=== PATIENT | female | born 1985 | race Two or more races ===

== ENCOUNTER 2016-03-31 10:16 | Emergency (ER) | payer OTHER ==
[~2016-03-31] VITALS: Ht 152.4 cm; Wt 67.2 kg
[2016-03-31 11:41] LABS: Urine Bilirubin Negative (Negative); Urine Blood Negative /uL (Negative); Urine Color Yellow (Yellow); Urine Glucose Normal (Normal); Urine Ketone Negative (Negative); Urine Mucus FEW (None Seen); Urine Nitrite Negative (Negative); Urine RBC 2 /hpf (0 - 4); Urine Squamous Epithelial Cell FEW /hpf (<5); Urine Urobilinogen Normal (Negative)
[2016-03-31 16:18] VITALS: BP 156/77
== END 2016-03-31 17:17 | disposition home or self-care (01) ==
LOC: ER 10:23
DX: N39.0 Urinary tract infection, site not specified (principal); E11.9 Type 2 diabetes mellitus without complications; Z57.5 Occupational exposure to toxic agents in other industries
CPT/HCPCS: 36600; 81001; 82805

== ENCOUNTER 2024-12-28 05:19 | Inpatient (IN) | payer BC, OTHER ==
[~2024-12-28] VITALS: Ht 152.4 cm; Wt 69.0 kg
[2024-12-28 04:30] VITALS: BP 138/86; PULSE 83; RESP 18; TEMP 98.2; O2SAT 99
--- NOTE | 2024-12-28 06:41 | ED.PDOC ---
History of Present Illness HPI Comments 39 y/o F presents with friend for c/c of nonradiating, RUQ abdominal pain, with associated lightheadedness. Patient endorses on sudden, unprovoked, and atraumatic onset of pain, which awoken her from her sleep, at 0230, this morning. She comments on sitting or laying down worsening her pain. Denies any nausea, vomiting, or further acute symptoms. Significant family history of gallstones and kidney stones. LMP was 2x weeks ago. Chief Complaint: Abdominal Pain Time Seen by MD: 06:20 Primary Care Provider: TITO Reviewed Notes: Nurses Notes, Medications, Allergies Allergies: Coded Allergies: NO KNOWN ALLERGIES (Unverified , 03/31/16) Information Source: Patient Mode of Arrival: Ambulatory Severity: Moderate Timing: Hours Duration: Since onset Prehospital treatment: None Past Medical History PAST MEDICAL HISTORY: DM Surgical History: Denies all surgeries HEALTH CARE COACH History: No Pertinent HEALTH CARE COACH History LMP 12/14/2024 Family History Family History: No family hx of DM, No family hx of Heart sejal, No family hx of HTN Family History (Other): maternal Hx of kidney and gallstones Social History Smoker: Non-Smoker Alcohol: Occasionally Drugs: Denies Drug Use All Other Systems: Reviewed and Negative (Comprehensive review of systems are negative unless stated in HPI) Physical Exam General Appearance: Moderate Distress HEENT: Normal ENT Inspection, Pharynx Normal, TMs Normal Neck: Full Range of Motion, Non-Tender, Normal, Normal Inspection Respiratory: Chest Non-Tender, Lungs Clear, No Accessory Muscle Use, No Respiratory Distress, Normal Breath Sounds Cardiovascular: No Edema, No JVD, No Murmur, No Gallop, Normal Peripheral Pulses, Regular Rate/Rhythm Breast Exam: Deferred Gastrointestinal: Diffuse, No Organomegaly, No Pulsatile Mass, Normal Bowel Sounds, Soft Genitalia: Deferred Pelvic: Deferred Rectal: Deferred Extremities: No calf tenderness, Normal capillary refill, Normal inspection, Normal range of motion, Non-tender, No pedal edema Musculoskeletal : Apperance: Normal Neurologic: Alert, lawyer II-XII nml as Tested, No Motor Deficits, Normal Affect, Normal Mood, No Sensory Deficits Cerebellar Function: Normal Reflexes: Normal Skin: Dry, Normal Color, Warm Peripheral Pulses: 3+ Radial (R), 3+ Radial (L) Lymphatic: No Adenopathy Was a procedure done? Was a procedure done?: No Differential Dx Considerations may include: cholelithiasis, cholecystitis, gastritis, gastroenteritis, GERD, nephrolithiasis, pyelonephritis, cystitis, musculoskeletal pain, among others X-Ray, Labs, Meds, VS Vital Signs Date Time Temp Pulse Resp B/P (MAP) Pulse Ox O2 Delivery O2 Flow Rate FiO2 12/28/24 05:20 97.1 84 18 145/88 100 97.1 Lab Test 12/28/24 06:58 Range/Units White Blood Count 13.2 H 4.4-10.8 10^3/uL Red Blood Count 4.36 4.0-5.20 10^6/uL Hemoglobin 11.9 L 12.2-16.2 g/dL Hematocrit 36.1 36.0-46.0 % Mean Corpuscular Volume 82.8 80.0-100.0 fL Mean Corpuscular Hemoglobin 27.2 L 28.0-32.0 pg Mean Corpuscular Hemoglobin Concent 32.8 32.0-36.0 g/dL Red Cell Distribution Width 15.7 H 11.8-14.3 % Platelet Count 352 140-450 10^3/uL Mean Platelet Volume 7.2 6.9-10.8 fL Neutrophils (%) (Auto) 75.7 37.0-80.0 % Lymphocytes (%) (Auto) 17.7 10.0-50.0 % Monocytes (%) (Auto) 5.8 0.0-12.0 % Eosinophils (%) (Auto) 0.5 0.0-7.0 % Basophils (%) (Auto) 0.3 0.0-2.0 % Neutrophils # (Auto) 10.0 H 1.6-8.6 10 ^3/uL Lymphocytes # (Auto) 2.3 0.4-5.4 10 ^3/uL Monocytes # (Auto) 0.8 0-1.3 10 ^3/uL Eosinophils # (Auto) 0.1 0-0.8 10 ^3/uL Basophils # (Auto) 0 0-0.2 10 ^3/uL Nucleated Red Blood Cells 0.0 % Sodium Level 141 136-145 mmol/L Potassium Level 3.6 3.5-5.1 mmol/L Chloride Level 107 98-107 mmol/L Carbon Dioxide Level 20 20-31 mmol/L Anion Gap 14 5-15 Blood Urea Nitrogen 10 9-23 mg/dL Creatinine 0.85 0.550-1.02 mg/dL Glomerular Filtration Rate Calc 89 >90 mL/min BUN/Creatinine Ratio 11.8 10.0-20.0 Serum Glucose 123 H 74-106 mg/dL Calcium Level 9.5 8.7-10.4 mg/dL Total Bilirubin Pending Aspartate Amino Transferase (AST) Pending Alanine Aminotransferase (ALT) Pending Alkaline Phosphatase Pending Current Medications Medications (Trade) Dose Ordered Sig/Beverly Route Start Time Stop Time Status Last Admin Sodium Chloride 1,000 ml @ 1,000 mls/hr Q1H ONCE IV 12/28/24 06:45 12/28/24 07:44 12/28/24 07:14 Ketorolac Tromethamine (Toradol Injection) 30 mg ONCE ONCE IV 12/28/24 06:45 12/28/24 06:46 DC 12/28/24 07:14 Ondansetron HCl (Zofran) 4 mg ONCE ONCE IV 12/28/24 06:45 12/28/24 06:46 DC 12/28/24 07:14 [place] [id number] Ph: [phone] DIAGNOSTIC IMAGING Diagnostic Imaging Report : [id number] Signed PATIENT: SUSAN MOELLER ACCT: [id number] UNIT: [id number] : 1985 LOC: ER ROOM / BED: / AGE / SEX: 39 / F ADM STATUS: REG ER SERVICE 0636 ORDERING PHYSICIAN: LAILA FERNANDEZ MD PROCEDURE(s): ABPL - CT AB PEL WO CON-NO ORAL OR IV REASON: stone ORDER NUMBER(s): [id number], ACCESSION NUMBER(s): [id number] Indication: stone Technique: CT axial images of the abdomen and pelvis are obtained without contrast. Coronal and sagittal reformats were obtained. Radiation Dose Information: CTDI volume is 6.08 mGy. Dose-length product is 283.77 mGy*cm Comparison: None FINDINGS: There is limited interpretation of the abdomen and pelvis without administration of intravenous contrast. The lung bases demonstrate no pleural effusion. Adrenal glands, spleen, pancreas unremarkable. Cholelithiasis. Distended gallbladder. There appears to be a gallstone impacted at the gallbladder neck. Liver unremarkable in shape. The bilateral kidneys demonstrate no hydronephrosis/ nephrolithiasis. Stomach is partially distended. Small bowel loops are normal in caliber. Moderate volume stool throughout the colon. Normal appendix. Bladder partially distended. No free pelvic fluid. No inguinal lymphadenopathy. No aggressive osseous process. IMPRESSION: Limited evaluation without contrast. Cholelithiasis with gallstone at the gallbladder neck. Distended gallbladder. Recommend HIDA scan to exclude cholecystitis. No hydronephrosis / nephrolithiasis. Moderate volume stool throughout the colon. Other findings as described. ATED BY: LILIANA ANDRADE MD DICTATED DATE/TIME: 12/28/24726 SIGNED BY: LILIANA ANDRADE MD SIGNED DATE/TIME: 12/28/24726 CC: Patient alert. Complaining of abdominal pain. Possibly stone. Vitals stable. Answering questions. Establish intravenous access. Was given fluids. Was given pain medication. Was given Zofran. Explained to the patient. Continue to monitor. Time of 1ST Reevaluation: 06:50 Reevaluation 1ST: Unchanged Patient Education/Counseling: Diagnosis, Treatment Family Education/Counseling: No Family Present (Friend present ) SEPSIS Sepsis Screen Date sepsis recognized/suspect: Dec 28, 2024 Time Sepsis recognized/suspect: 523 Recent Procedure: No On Antibiotic Therapy: No Respiratory Rate >20: No Heart Rate >90: No Temp<36 C (96.8 F) or >38.3 C: No SBP <90 or MAP <65 mmHG: No New Acute Mental Status Change: No Is the patient on CPAP, BIPAP,: No Physician Orders Urinalysis (12/28/24 06:36) Ct Ab Pel Wo Con-No Oral Or Iv (12/28/24 06:36) Sodium Chloride 0.9% (12/28/24 06:45) Bilirubin, Total (12/28/24 06:59) Aspartate Amino Transferase (12/28/24 06:59) Alanine Aminotransferase (12/28/24 06:59) Alkaline Phosphatase (12/28/24 06:59) Vital Signs Date Time Temp Pulse Resp B/P (MAP) Pulse Ox O2 Delivery O2 Flow Rate FiO2 12/28/24 05:20 97.1 84 18 145/88 100 97.1 Laboratory Tests Test 12/28/24 06:58 White Blood Count 13.2 10^3/uL (4.4-10.8) H Medications Medications Dose Ordered Sig/Beverly Route Start Time Stop Time Status Last Admin Dose Admin Ketorolac Tromethamine 30 mg ONCE ONCE IV 12/28/24 06:45 12/28/24 06:46 DC 12/28/24 07:14 Ondansetron HCl 4 mg ONCE ONCE IV 12/28/24 06:45 12/28/24 06:46 DC 12/28/24 07:14 Sodium Chloride 1,000 ml @ 1,000 mls/hr Q1H ONCE IV 12/28/24 06:45 12/28/24 07:44 12/28/24 07:14 Departure 1 Departure Time of Disposition: 07:03 Impression: Primary Impression: Acute abdominal pain Disposition: ADMITTED INPATIENT Admit to: Med Surg Condition: Guarded Critical Care Note Critical Care Time?: Yes (90 min-critical care time only) Critical care comment: Severe pain Stability Stability form required: No Heart Score Heart Score: Heart Score Response (Comments) Value History N/A 0 EKG N/A 0 Age N/A 0 Risk Factors N/A 0 Troponin N/A 0 Total 0 I personally scribed for LAILA FERNANDEZ MD ([email or web address]) on 12/28/24 at 06:41. Electronically submitted by Bob Tesfaye ([email or web address]). I personally scribed for LAILA FERNANDEZ MD ([email or web address]) on 12/28/24 at 07:43. Electronically submitted by Bob Tesfaye ([email or web address]). LAILA FERNANDEZ MD Dec 28, 2024 06:41
[2024-12-28] MEDS: ONDANSETRON HCL 4 MG/2 ML VIAL IV ONE (07:14)
[2024-12-28] MEDS: KETOROLAC TROMETH 30 MG/ML 1ML VIAL IV ONE (07:14)
[2024-12-28] MEDS: SODIUM CHLORIDE 0.9% 1,000 ML IV ONE (07:14)
--- NOTE | 2024-12-28 07:25 | DVH ---
Indication: stone Technique: CT axial images of the abdomen and pelvis are obtained without contrast. Coronal and sagit cynthia reformats were obtained. Radiation Dose Information: CTDI volume is 6.08 mGy. Dose-length product is 283.77 mGy*cm Comparison: None FINDINGS: There is limited interpretation of the abdomen and pelvis without administration of intravenous contr ast. The lung bases demonstrate no pleural effusion. Adrenal glands, spleen, pancreas unremarkable. Cholelithiasis. Distended gallbladder. There appears to be a gallstone impacted at the gallbladder n [place]. Liver unremarkable in shape. The bilateral kidneys demonstrate no hydronephrosis/ nephrolithiasis. Stomach is partially distended. Small bowel loops are normal in caliber. Moderate volume stool throughout the colon. Normal appendix. Bladder partially distended. No free pelvic fluid. No inguinal lymphadenopathy. No aggressive osseous process. IMPRESSION: Limited evaluation without contrast. Cholelithiasis with gallstone at the gallbladder neck. Distended gallbladder. Recommend HIDA scan t o exclude cholecystitis. No hydronephrosis / nephrolithiasis. Moderate volume stool throughout the colon. Other findings as described.
[2024-12-28 07:32] LABS: Chloride 107 mmol/L (98-107); Potassium 3.6 mmol/L (3.5-5.1); Sodium 141 mmol/L (136-145)
[2024-12-28 07:33] LABS: Anion Gap 14 (5-15); Calcium 9.5 mg/dL (8.7-10.4); Carbon Dioxide 20 mmol/L (20-31)
[2024-12-28 07:37] LABS: Hematocrit 36.1 % (36.0-46.0); Hemoglobin 11.9 g/dL (12.2-16.2); Mean Corpuscular Hemoglobin 27.2 pg (28.0-32.0); Mean Corpuscular Volume 82.8 fL (80.0-100.0); Nucleated Red Blood Cells % 0.0 %
[2024-12-28 07:38] LABS: BUN/Creatinine Ratio 11.8 (10.0-20.0); Blood Urea Nitrogen 10 mg/dL (9-23)
[2024-12-28 07:39] LABS: Glucose 123 mg/dL (74-106)
[2024-12-28 07:41] LABS: Alkaline Phosphatase 83.0 U/L (46-116); Bilirubin, Total 0.3 mg/dL (0.2-1.0)
[2024-12-28 07:51] LABS: Alanine Aminotransferase 46.0 U/L (7-40)
[2024-12-28 11:50] LABS: Urine Protein, UAD Negative (Negative)
[2024-12-28] MEDS ORDERED: ACETAMINOPHEN 325 MG TAB PO PRN (12:00)
--- NOTE | 2024-12-28 12:42 | DVHHP2 ---
History of Present Illness Reason for Visit: Abdominal pain History of Present Illness Krista Farley is a 39-year-old female with past medical history of gestational diabetes 22 years ago, who came to the hospital for abdominal pain. Patient states she last ate 2 corn dogs yesterday 12/27/2024 at 2000. She was awoken at 0230 this morning due to RUQ pain. She tried to relieve the pain at home and relax and go back to sleep with no improvements. The pain continued to worsen prompting her to come to the hospital. Past Surgical History: None Smoke: No ALCOHOL: occassional Drugs: None Lives: with Family Domestic Violence: Neg Review of Systems Constitutional: No: Fever, Chills, Sweats, Weakness, Malaise, Other Eyes: No: Pain, Vision change, Conjunctivae inflammation, Eyelid inflammation, Other, Redness ENT: No: Ear pain, Ear discharge, Nose pain, Nose discharge, Nose congestion, Mouth pain, Mouth swelling, Throat pain, Throat swelling, Other Respiratory: No: Cough, Dry, Shortness of breath, SOB with excertion, Wheezing, Hemoptysis, Pleuritic Pain, Sputum, Wheezing, Other Cardiovascular: No: Chest Pain, Palpitations, Orthopnea, Paroxysmal Noc. Dyspnea, Edema, Lt Headedness, Other Gastrointestinal: Nausea, Abdominal Pain; No: Vomiting, Diarrhea, Constipation, Melena, Hematochezia, Other Genitourinary: No Dysuria, No Frequency, No Incontinence, No Hematuria, No Retention, No Other Musculoskeletal: No: other, neck pain, shoulder pain, arm pain, back pain, hand pain, leg pain, foot pain Skin: No: Rash, Lesions, Jaundice, Bruising, Other Neurological: No: Weakness, Numbness, Incoordination, Change in speech, Confusion, Seizures, Other Allergies: Coded Allergies: NO KNOWN ALLERGIES (Unverified , 03/31/16) Exam Vital Signs Vital Signs Date Time Temp Pulse Resp B/P (MAP) Pulse Ox O2 Delivery O2 Flow Rate FiO2 12/28/24 11:50 98.0 94 15 108/80 (89) 100 98.0 12/28/24 09:05 Room Air General Appearance: Alert, Oriented X3, Cooperative HEENT: Atraumatic, PERRLA, Other (Mucous membr dry) Respiratory: Clear to auscultation, Normal air movement Cardiovascular: Regular rate, Normal S1, Normal S2, No murmurs Abdominal: Normal bowel sounds, Soft, No hepatospenomegaly, Other (RUQ tenderness) Extremities: No clubbing, No cyanosis, No edema, Normal pulses Skin: No rashes, No breakdown, No significant lesion Neuro: Normal gait, Normal speech, Strength at 5/5 X4 ext Psych/Mental Status: Mental status NL, Mood NL Labs/Xrays Labs Test 12/28/24 11:27 12/28/24 06:58 Range/Units Urine Color Straw Yellow Urine Clarity Turbid H Clear Urine pH 5.5 5.0-9.0 Urine Specific [place] 1.009 1.001-1.035 Urine Protein Negative Negative Urine Ketones Negative Negative Urine Blood Negative Negative /uL Urine Nitrite Negative Negative Urine Bilirubin Negative Negative Urine Urobilinogen Normal Negative mg/dL Urine Leukocyte Esterase 3+ Negative /uL Urine RBC 5 0 - 4 /hpf Urine Microscopic WBC 3 0-5 /HPF Urine Squamous Epithelial Cells Few <5 /hpf Urine Bacteria None seen None Seen /hpf Urine Mucus Few None Seen Urine Glucose Normal Normal mg/dL White Blood Count 13.2 H 4.4-10.8 10^3/uL Red Blood Count 4.36 4.0-5.20 10^6/uL Hemoglobin 11.9 L 12.2-16.2 g/dL Hematocrit 36.1 36.0-46.0 % Mean Corpuscular Volume 82.8 80.0-100.0 fL Mean Corpuscular Hemoglobin 27.2 L 28.0-32.0 pg Mean Corpuscular Hemoglobin Concent 32.8 32.0-36.0 g/dL Red Cell Distribution Width 15.7 H 11.8-14.3 % Platelet Count 352 140-450 10^3/uL Mean Platelet Volume 7.2 6.9-10.8 fL Neutrophils (%) (Auto) 75.7 37.0-80.0 % Lymphocytes (%) (Auto) 17.7 10.0-50.0 % Monocytes (%) (Auto) 5.8 0.0-12.0 % Eosinophils (%) (Auto) 0.5 0.0-7.0 % Basophils (%) (Auto) 0.3 0.0-2.0 % Neutrophils # (Auto) 10.0 H 1.6-8.6 10 ^3/uL Lymphocytes # (Auto) 2.3 0.4-5.4 10 ^3/uL Monocytes # (Auto) 0.8 0-1.3 10 ^3/uL Eosinophils # (Auto) 0.1 0-0.8 10 ^3/uL Basophils # (Auto) 0 0-0.2 10 ^3/uL Nucleated Red Blood Cells 0.0 % Sodium Level 141 136-145 mmol/L Potassium Level 3.6 3.5-5.1 mmol/L Chloride Level 107 98-107 mmol/L Carbon Dioxide Level 20 20-31 mmol/L Anion Gap 14 5-15 Blood Urea Nitrogen 10 9-23 mg/dL Creatinine 0.85 0.550-1.02 mg/dL Glomerular Filtration Rate Calc 89 >90 mL/min BUN/Creatinine Ratio 11.8 10.0-20.0 Serum Glucose 123 H 74-106 mg/dL Calcium Level 9.5 8.7-10.4 mg/dL Total Bilirubin 0.3 0.2-1.0 mg/dL Aspartate Amino Transferase (AST) 44 H 13-40 U/L Alanine Aminotransferase (ALT) 46 H 7-40 U/L Alkaline Phosphatase 83 46-116 U/L Technique: CT axial images of the abdomen and pelvis are obtained without contrast. FINDINGS: There is limited interpretation of the abdomen and pelvis without administration of intravenous contrast. The lung bases demonstrate no pleural effusion. Adrenal glands, spleen, pancreas unremarkable. Cholelithiasis. Distended gallbladder. There appears to be a gallstone impacted at the gallbladder neck. Liver unremarkable in shape. The bilateral kidneys demonstrate no hydronephrosis/ nephrolithiasis. Stomach is partially distended. Small bowel loops are normal in caliber. Moderate volume stool throughout the colon. Normal appendix. Bladder partially distended. No free pelvic fluid. No inguinal lymphadenopathy. No aggressive osseous process. IMPRESSION: Limited evaluation without contrast. Cholelithiasis with gallstone at the gallbladder neck. Distended gallbladder. Recommend HIDA scan to exclude cholecystitis. No hydronephrosis / nephrolithiasis. Moderate volume stool throughout the colon. Other findings as described. SEPSIS Sepsis Screen Date sepsis recognized/suspect: Dec 28, 2024 Time Sepsis recognized/suspect: 523 Recent Procedure: No On Antibiotic Therapy: No Respiratory Rate >20: No Heart Rate >90: No Temp<36 C (96.8 F) or >38.3 C: No SBP <90 or MAP <65 mmHG: No New Acute Mental Status Change: No Is the patient on CPAP, BIPAP,: No Physician Orders Ct Ab Pel Wo Con-No Oral Or Iv (12/28/24 06:36) Nm Hida Scan (12/28/24 09:31) Nm Hida Scan (12/28/24 09:47) Admit (12/28/24 11:58) Code Status (12/28/24 11:58) 0.9% Ns 1000 Ml (12/28/24 12:00) Hydrocodone-Acet 5/325mg Tab ([place] 5/32 (12/28/24 12:00) Ondansetron Hcl (Zofran) (12/28/24 12:00) Docusate Sodium Capsule (Colace Capsule) (12/28/24 12:00) Complete Blood Count (12/29/24 04:00) Comprehensive Metabolic Panel (12/29/24 04:00) Npo (Nothing By Mouth) Diet (12/28/24 Lunch) Condition: Serious (12/28/24 11:58) Acetaminophen Tablet (Tylenol Tablet) (12/28/24 12:00) PTPTT (12/28/24 11:58) Gallbladder (12/28/24 11:58) Vital Signs Date Time Temp Pulse Resp B/P (MAP) Pulse Ox O2 Delivery O2 Flow Rate FiO2 12/28/24 11:50 98.0 94 15 108/80 (89) 100 98.0 12/28/24 09:05 97.8 70 16 121/83 (96) 98 97.8 12/28/24 09:05 70 16 98 Room Air 12/28/24 05:20 97.1 84 18 145/88 100 97.1 Laboratory Tests Test 12/28/24 06:58 White Blood Count 13.2 10^3/uL (4.4-10.8) H Medications Medications Dose Ordered Sig/Beverly Route Start Time Stop Time Status Last Admin Dose Admin Ceftriaxone Sodium 50 ml @ 100 mls/hr ONCE ONCE IV 12/28/24 10:00 12/28/24 10:29 DC 12/28/24 10:24 100 MLS/HR Ketorolac Tromethamine 30 mg ONCE ONCE IV 12/28/24 06:45 12/28/24 06:46 DC 12/28/24 07:14 30 MG Metronidazole 100 ml @ 100 mls/hr ONCE ONCE IV 12/28/24 10:00 12/28/24 10:59 DC 12/28/24 10:24 100 MLS/HR Ondansetron HCl 4 mg ONCE ONCE IV 12/28/24 06:45 12/28/24 06:46 DC 12/28/24 07:14 4 MG Sodium Chloride 1,000 ml @ 1,000 mls/hr Q1H ONCE IV 12/28/24 06:45 12/28/24 07:44 DC 12/28/24 07:14 1,000 MLS/HR Assessment/Plan Assessment/Plan Assessment: Cholelithiasis, Possible acute cholecystitis, Leukocytosis, Plan: Admit to Med-Surg, Surgical consult, HIDA scan, Gallbladder ultrasound, NPO, IV hydration, IV antibiotics, Plan discussed with: Patient My Orders Orders - JACOBO NG Procedure Category Date Status Time Nm Hida Scan NM 12/28/24 Logged 09:31 Admit ADMIT 12/28/24 Transmitted 11:58 Code Status CODE 12/28/24 Transmitted 11:58 0.9% Ns 1000 Ml PHA 12/28/24 Transmitted 12:00 Hydrocodone-Acet PHA 12/28/24 Transmitted 5/325mg Tab ([place] 12:00 Ondansetron Hcl PHA 12/28/24 Transmitted (Zofran) 12:00 Docusate Sodium PHA 12/28/24 Transmitted Capsule (Colace 12:00 Complete Blood Count LAB 12/29/24 Verified 04:00 Comprehensive LAB 12/29/24 Verified Metabolic Panel 04:00 Npo (Nothing By DIET 12/28/24 Transmitted Mouth) Diet Lunch Condition: Serious JESUS 12/28/24 Transmitted 11:58 Acetaminophen Tablet PHA 12/28/24 Transmitted (Tylenol Tablet) 12:00 PTPTT LAB 12/28/24 Transmitted 11:58 Gallbladder US 12/28/24 Transmitted 11:58 Date of Service: Dec 28, 2024 Billing Provider: JACOBO NG Common Visit Codes: 33315-MLNAMEQ INP/OBS CARE (MOD) JACOBO NG Dec 28, 2024 12:42
--- NOTE | 2024-12-28 13:04 | DVH ---
INDICATION: Cholelithiasis TECHNIQUE: Multiple real-time sonographic images of the abdomen were obtained. COMPARISON: None FINDINGS: The liver is homogenous in echogenicity. The liver measures 14.7 cm. No intrahepatic bilia ry ductal dilatation is noted. The gallbladder wall measures 0.24 cm and is unremarkable. Cholelithiasis. The common duct measure s 0.55 cm and is unremarkable. No pericholecystic fluid is noted. Negative sonographic coleman's sign The right kidney measures 10.1 cm. No hydronephrosis. The pancreas is visualized and appears normal. The visualized portions of the IVC and aorta are grossly unremarkable. IMPRESSION: 1. Cholelithiasis with negative sonographic coleman's sign 2. Liver measures 14.7 cm in length and appears homogeneous 3. Right kidney measures 10.1 cm in length there is no hydronephrosis.
[2024-12-28] MEDS: SODIUM CHLORIDE 0.9% 1,000 ML IV SCH (13:29)
[2024-12-28 13:35] LABS: INR 1.02 (0.9-1.15); Partial Thromboplastin Time 25.1 SEC (24.5-34.5); Prothrombin Time 10.8 sec (9.3-11.8)
[2024-12-28] MEDS: HYDROcodone-ACET 5/325MG TAB PO PRN (16:24)
[2024-12-28 16:30] VITALS: BP 138/86; PULSE 83; RESP 18; TEMP 98.2; O2SAT 99
[2024-12-28 19:00] VITALS: PULSE 84; RESP 18; O2SAT 100
[2024-12-28] MEDS: HYDROMORPHONE HCL 1 MG/ML INJ IV ONE (19:28)
[2024-12-28 20:22] VITALS: BP 125/78; PULSE 84; RESP 18; TEMP 98.4; O2SAT 100
[2024-12-28 20:30] VITALS: PULSE 89; RESP 18; O2SAT 100
[2024-12-28] MEDS: ONDANSETRON HCL 4 MG/2 ML VIAL IV PRN (20:37)
[2024-12-29] VITALS (10 sets, daily range): BP systolic 107–138; BP diastolic 69–92; PULSE 77–106; RESP 10–20; TEMP 98–98.9; O2SAT 96–99
[2024-12-29] MEDS: HYDROmorphone HCL 2 MG/ML VL/or syr IV PRN (00:13)
[2024-12-29] MEDS: KETOROLAC TROMETH 30 MG/ML 1ML VIAL IV ONE (06:14)
[2024-12-29 07:34] LABS: Hematocrit 29.3 % (36.0-46.0); Hemoglobin 9.6 g/dL (12.2-16.2); Mean Corpuscular Hemoglobin 27.2 pg (28.0-32.0); Mean Corpuscular Volume 83.4 fL (80.0-100.0); Nucleated Red Blood Cells % 0.0 %
--- NOTE | 2024-12-29 07:35 | DVHINCON2 ---
Date of service: Dec 29, 2024 Family History: FH: cardiovascular disease G8 FATHER FH: dementia maternal grandmother Gingivitis G8 MOTHER Allergies: Coded Allergies: NO KNOWN ALLERGIES (Unverified , 03/31/16) Current Medications Current Medications Medications (Trade) Dose Ordered Sig/Beverly Route PRN Reason Start Time Stop Time Status Last Admin Sodium Chloride 1,000 ml @ 100 mls/hr Q10H IV 12/28/24 12:00 12/28/24 13:29 Acetaminophen/ Hydrocodone Bitart ([place] 5/325MG Tab) 1 tab Q4HP PRN PO MODERATE PAIN (4-6 PAIN SCALE) 12/28/24 12:00 12/29/24 02:29 Ondansetron HCl (Zofran) 4 mg Q4HP PRN IV NAUSEA / VOMITING 12/28/24 12:00 12/29/24 01:54 Docusate Sodium (Colace Capsule) 100 mg BIDPRN PRN PO FOR CONSTIPATION 12/28/24 12:00 Acetaminophen (Tylenol Tablet) 650 mg Q6HP PRN PO PAIN SCALE 1-3 OR TEMP>100.4 12/28/24 12:00 Ceftriaxone Sodium 50 ml @ 100 mls/hr DAILY@09 IV 12/29/24 09:00 Metronidazole 100 ml @ 100 mls/hr Q8HR IV 12/28/24 22:00 12/29/24 05:04 Hydromorphone HCl (Dilaudid Injection) 0.5 mg Q6HP PRN IV SEVERE PAIN (7-10 PAIN SCALE) 12/29/24 00:00 12/29/24 00:13 Vital Signs Vital Signs Date Time Temp Pulse Resp B/P (MAP) Pulse Ox O2 Delivery O2 Flow Rate FiO2 12/29/24 05:00 98.8 80 16 125/83 (97) 97 98.8 12/28/24 20:30 Room Air* 0 21 Labs/Diagnostic Data Labs Test 12/29/24 07:09 12/28/24 12:57 12/28/24 11:27 12/28/24 06:58 Range/Units Prothrombin Time 10.8 9.3-11.8 sec Prothrombin Time INR 1.02 0.9-1.15 Activated Partial Thromboplast Time 25.1 24.5-34.5 SEC Beta HCG, Quantitative < 0.0 L 1.5-4.2 mIU/mL Urine Color Straw Yellow Urine Clarity Turbid H Clear Urine pH 5.5 5.0-9.0 Urine Specific [place] 1.009 1.001-1.035 Urine Protein Negative Negative Urine Ketones Negative Negative Urine Blood Negative Negative /uL Urine Nitrite Negative Negative Urine Bilirubin Negative Negative Urine Urobilinogen Normal Negative mg/dL Urine Leukocyte Esterase 3+ Negative /uL Urine RBC 5 0 - 4 /hpf Urine Microscopic WBC 3 0-5 /HPF Urine Squamous Epithelial Cells Few <5 /hpf Urine Bacteria None seen None Seen /hpf Urine Mucus Few None Seen Urine Glucose Normal Normal mg/dL Eosinophils (%) (Auto) 0.5 0.0-7.0 % Eosinophils # (Auto) 0.1 0-0.8 10 ^3/uL Basophils # (Auto) 0 0-0.2 10 ^3/uL Nucleated Red Blood Cells 0.0 % Assessment 39 YEAR OLD FEMALE WITH DOCUMENTED CHOLELITHIASIS "WORSE PAIN OF HER LIFE", TENDER RUQ, ABNORMAL LFT'S , WILL PROCEED WITH OPERATION, RISKS AND COMPLICATIONS OF LAPAROSCOPIC POSSIBLY OPEN CHOLECYSTECTOMY EXPLAINED IN DETAIL Plan discussed with: Patient RITO PRIDE MD Dec 29, 2024 07:35
[2024-12-29 07:52] LABS: Albumin 3.5 g/dL (3.2-4.8); Alkaline Phosphatase 73 U/L (46-116); Anion Gap 10 (5-15); BUN/Creatinine Ratio 8.3 (10.0-20.0); Carbon Dioxide 22 mmol/L (20-31); Potassium 3.7 mmol/L (3.5-5.1); Sodium 140 mmol/L (136-145); Total Protein 6.3 g/dL (5.7-8.2)
[2024-12-29 07:53] LABS: Bilirubin, Total 0.4 mg/dL (0.2-1.0)
[2024-12-29] MEDS: ceFAZolin 2 GM/D5W50ml 50 ML IV ONE (07:54)
[2024-12-29 07:56] LABS: Alanine Aminotransferase 44 U/L (7-40); Blood Urea Nitrogen 6 mg/dL (9-23); Calcium 7.9 mg/dL (8.7-10.4); Chloride 108 mmol/L (98-107); Glucose 117 mg/dL (74-106)
[2024-12-29] MEDS ORDERED: HYDROmorphone HCL 2 MG/ML VL/or syr ONE (08:03)
[2024-12-29] MEDS ORDERED: KETAMINE 50mg/ML 1ml syringe ONE (08:03)
[2024-12-29] MEDS ORDERED: fentaNYL CITRATE 100 MCG/2 ML VL ONE (08:03)
[2024-12-29] MEDS ORDERED: KETOROLAC TROMETH 30 MG/ML 1ML VIAL ONE (08:04)
[2024-12-29] MEDS ORDERED: PROPOFOL 10 MG/ML 20 ML IV ONE (08:04)
[2024-12-29] MEDS ORDERED: LIDOCAINE 2% (LOCAL ANESTH.) PF 5ml SDV ONE (08:04)
[2024-12-29] MEDS ORDERED: MIDAZOLAM HCL 2MG/2ML 2ml VIAL (1mg/ml) ONE (08:04)
[2024-12-29] MEDS ORDERED: GLYCOPYRROLATE 0.2 MG/ML 1ML VIAL ONE (08:04)
--- NOTE | 2024-12-29 08:46 | DVHINCON2 ---
Date of service: Dec 29, 2024 Reason for Consultation ACUTE CHOLECYSTITIS History of Present Illness HPI 39-year-old female who came to the hospital with complaint of right upper quadrant abdominal pain which she states radiates to her back. Patient states she had ate corn dogs on 12/27/2024 at night and than at 2 am she was awaken with a sharp right upper quadrant pain. The pain became worse and prompted her to come to the ER for further evaluation. Chief Complaint of Abdominal/F: Abdominal pain Location of Abdominal Onset: RUQ Abdominal Pain Radiation: Back Past Medical History Cardiac: No pertinent Hx Pulmonary: No pertinent Hx Central Nervous System: No pertinent Hx GI: No pertinent Hx Hemotology/Oncology: No pertinent Hx Hepatobiliary: No pertinent Hx Psychiatric: No pertinent Hx Musculoskeletal: No pertinent Hx Rheumotologic: No pertinent Hx Infectious Disease: No peritnent Hx ENT: No pertinent Hx Renal/: No pertinent Hx Endocrine: No pertinent Hx Dermatology: No pertinent Hx Past Surgical History: No pertinent Hx Patient Family History: FH: cardiovascular disease G8 FATHER FH: dementia maternal grandmother Gingivitis G8 MOTHER Smoker: No Hx (Negative) Alocohol: None Drugs: None Lives with: With family Review of Systems Constitutional: No symptom reported Ears, Nose, & Throat: No symptom reported Eyes: No symptom reported Pulmonary/Respiratory: No symptom reported Cardiovascular: No symptom reported Gastrointestinal: Abdominal Pain Genitourinary: No symptom reported Musculoskeletal: No symptom reported Skin: No symptom reported Psychiatric: No symptom reported Endocrine: No symptom reported Hemotologic/Lymphatic: No symptom reported H&P Exam Vital Signs Vital Signs Date Time Temp Pulse Resp B/P (MAP) Pulse Ox O2 Delivery O2 Flow Rate FiO2 12/29/24 05:00 98.8 80 16 125/83 (97) 97 98.8 12/28/24 20:30 Room Air* 0 21 General Appeara: Well developed, Well nourished, Normal Appearance Head Exam: Normal inspection Neck Exam: Normal inspection Eye Exam: bilateral eye PERRL Nasal Exam: Normal inspection Mouth: Normal Inspection Pulmonary/Respiratory: Normal inspection Cardiovascular/Chest: Normal inspection Abdominal Exam: Normal bowel sounds Abdominal Pain Onset Location: RUQ Tendon/ Neuro: Normal sensation PONY ROUGHER Exam: Normal hearing, Normal speech, PERRL Neuro/Mental St: Alert, Oriented Eye contact/ Speech: Cooperative, Good eye contact Thoughts/Psych: Normal thought pattern Skin Exam: Normal inspection, Normal color Labs/Xrays Labs Test 12/29/24 07:09 12/28/24 12:57 12/28/24 11:27 Range/Units White Blood Count 11.9 H 4.4-10.8 10^3/uL Red Blood Count 3.51 L 4.0-5.20 10^6/uL Hemoglobin 9.6 #L 12.2-16.2 g/dL Hematocrit 29.3 #L 36.0-46.0 % Mean Corpuscular Volume 83.4 80.0-100.0 fL Mean Corpuscular Hemoglobin 27.2 L 28.0-32.0 pg Mean Corpuscular Hemoglobin Concent 32.6 32.0-36.0 g/dL Red Cell Distribution Width 15.7 H 11.8-14.3 % Platelet Count 262 140-450 10^3/uL Mean Platelet Volume 7.2 6.9-10.8 fL Neutrophils (%) (Auto) 76.5 37.0-80.0 % Lymphocytes (%) (Auto) 14.5 10.0-50.0 % Monocytes (%) (Auto) 8.8 0.0-12.0 % Eosinophils (%) (Auto) 0.1 0.0-7.0 % Basophils (%) (Auto) 0.1 0.0-2.0 % Neutrophils # (Auto) 9.1 H 1.6-8.6 10 ^3/uL Lymphocytes # (Auto) 1.7 0.4-5.4 10 ^3/uL Monocytes # (Auto) 1.0 0-1.3 10 ^3/uL Eosinophils # (Auto) 0 0-0.8 10 ^3/uL Basophils # (Auto) 0 0-0.2 10 ^3/uL Nucleated Red Blood Cells 0.0 % Sodium Level 140 136-145 mmol/L Potassium Level 3.7 3.5-5.1 mmol/L Chloride Level 108 H 98-107 mmol/L Carbon Dioxide Level 22 20-31 mmol/L Anion Gap 10 5-15 Blood Urea Nitrogen 6 L 9-23 mg/dL Creatinine 0.72 0.550-1.02 mg/dL Glomerular Filtration Rate Calc 109 >90 mL/min BUN/Creatinine Ratio 8.3 L 10.0-20.0 Serum Glucose 117 H 74-106 mg/dL Calcium Level 7.9 L 8.7-10.4 mg/dL Total Bilirubin 0.4 0.2-1.0 mg/dL Aspartate Amino Transferase (AST) 41 H 13-40 U/L Alanine Aminotransferase (ALT) 44 H 7-40 U/L Alkaline Phosphatase 73 46-116 U/L Total Protein 6.3 5.7-8.2 g/dL Albumin 3.5 3.2-4.8 g/dL Prothrombin Time 10.8 9.3-11.8 sec Prothrombin Time INR 1.02 0.9-1.15 Activated Partial Thromboplast Time 25.1 24.5-34.5 SEC Beta HCG, Quantitative < 0.0 L 1.5-4.2 mIU/mL Urine Color Straw Yellow Urine Clarity Turbid H Clear Urine pH 5.5 5.0-9.0 Urine Specific [place] 1.009 1.001-1.035 Urine Protein Negative Negative Urine Ketones Negative Negative Urine Blood Negative Negative /uL Urine Nitrite Negative Negative Urine Bilirubin Negative Negative Urine Urobilinogen Normal Negative mg/dL Urine Leukocyte Esterase 3+ Negative /uL Urine RBC 5 0 - 4 /hpf Urine Microscopic WBC 3 0-5 /HPF Urine Squamous Epithelial Cells Few <5 /hpf Urine Bacteria None seen None Seen /hpf Urine Mucus Few None Seen Urine Glucose Normal Normal mg/dL Assessment/Plan Problem List: (1) Cholecystitis (2) Cholelithiasis Plan labs, image reports and notes reviewed right upper quadrant tender to palpation , positive Camilo sign pain radiates to back denies nausea or vomiting operation risks and complications explained in detail all questions answered patient agrees to surgery and she can not tolerate pain anymore Plan: Laparoscopic possibly open cholecystectomy today Plan discussed with: Patient, Other (Dr. Carranza ) Visit Coding Surgery Date of Service if different f: Dec 29, 2024 Billing Provider: RITO CARRANZA MD Surgery Visit Codes: [id number] - INP CONSULT <80 MIN TEE ANDREW ALLEY CLEANER Dec 29, 2024 08:46
[2024-12-29] MEDS ORDERED: SUGAMMADEX 200mg/2ml Vial (100MG/ML) IV ONE (09:35)
[2024-12-29] MEDS: BUPIVACAINE HCL 0.25% P/F 10 ML VIAL ONE (09:41)
[2024-12-29] MEDS: LIDOCAINE W/ EPINEPHRINE 1% 20ML VIAL ONE (09:42)
[2024-12-29] MEDS ORDERED: HYDROMORPHONE HCL 1 MG/ML INJ IV PRN (10:15)
[2024-12-29] MEDS ORDERED: ONDANSETRON HCL 4 MG/2 ML VIAL IV PRN (10:45)
[2024-12-29] MEDS: ACETAMINOPHEN IV 1000 MG/100ML (10MG/ML) IV ONE (10:45)
[2024-12-29] MEDS ORDERED: HYDROmorphone HCL 2 MG/ML VL/or syr IV PRN (10:45)
--- NOTE | 2024-12-29 11:05 | DVHOP ---
DATE OF SURGERY: 12/29/2024 PREOPERATIVE DIAGNOSES: * Cholelithiasis. * Cholecystitis. POSTOPERATIVE DIAGNOSES: * Cholelithiasis. * Cholecystitis. SURGEON: Brennan Carranza MD TAGMAN: Franko Moss NP ANESTHESIA: General endotracheal. ANESTHESIOLOGIST: Dr. Villatoro. PROCEDURES: * Laparoscopy. * Laparoscopic cholecystectomy. DESCRIPTION OF PROCEDURE: Under general endotracheal anesthesia with the patient's skin prepped and draped, a supraumbilical incision was made and Veress needle inserted into the peritoneal cavity by the hanging drop technique in order to establish pneumoperitoneum to 15 mmHg pressure by insufflation with carbon dioxide. With the abdomen fully distended, the needle was removed and replaced with a 5-mm trocar port through which a 0-degree viewing laparoscope was inserted and under direct vision, 5 mm port and 10 mm port inserted through the right flank and subxiphoid skin respectively. Instrumentation was introduced. The patient's laparoscopy was accomplished. Laparoscopy revealed no obvious unexpected pathology. The gallbladder was almost entirely intrahepatic and was severely inflamed and infected. It was aspirated of bile, which was then submitted for cultures and sensitivity. The patient's gallbladder was grasped with a grasping forceps and the cystic duct and cystic artery were identified, circumferentially dissected, skeletonized, and traced into the hepatocystic triangle so as to minimize the potential for inadvertent injury to the common bile duct. The cystic duct and cystic artery were then divided between metallic clips close to the gallbladder again attempting to avoid injury to the common bile duct. The intrahepatic gallbladder was then resected from its hepatic bed and removed from the peritoneal cavity. The subhepatic space was irrigated. Irrigant was aspirated. A 10-mm Walter-Batista drain was placed underneath the right lobe of the liver and exteriorized to the 5-mm port site on the right flank, secured with a 2-0 nylon suture. The patient's abdominal cavity was inspected for hemostasis, which was found to be complete. At the termination of the procedure, there was no evidence of bleeding from either the liver bed of the gallbladder or from the port sites. Instrumentation was withdrawn. Pneumoperitoneum ____ 0 Vicryl. The wounds were approximated using Monocryl sutures, Dermabond glue and Steri-Strips. The patient remained stable throughout the procedure, left the operating room following an accurate needle and sponge counts. Her , Amador, was thoroughly informed at [phone]. MD DANY Savage/JOVANNY/SUZANNE TID: [id number] RECEIPT: [id number]
[2024-12-29] MEDS: D5W/SOD CHL 0.45%/KCL 20MEQ 1,000 ML IV SCH (14:00)
--- NOTE | 2024-12-29 17:12 | DVHPN2 ---
Subjective no com,plaints Changes from previous H/P or p: No Changes Eyes: No Pain, No Vision change, No Conjunctivae inflammation, No Eyelid inflammation, No Other, No Redness ENT: No Ear pain, No Ear discharge, No Nose pain, No Nose discharge, No Nose congestion, No Mouth pain, No Mouth swelling, No Throat pain, No Throat swelling, No Other Cardiovascular: No Chest Pain, No Palpitations, No Orthopnea, No Paroxysmal Noc. Dyspnea, No Edema, No Lt Headedness, No Other Respiratory: No Cough, No Dry, No Shortness of breath, No SOB with excertion, No Wheezing, No Hemoptysis, No Pleuritic Pain, No Sputum, No Other Gastrointestinal: Nausea; No Vomiting; Abdominal Pain; No Diarrhea, No Constipation, No Melena, No Hematochezia, No Other Genitourinary: No Dysuria, No Frequency, No Incontinence, No Hematuria, No Retention, No Other Musculoskeletal: No other, No neck pain, No shoulder pain, No arm pain, No back pain, No hand pain, No leg pain, No foot pain Skin: No Rash, No Lesions, No Jaundice, No Bruising, No Other Objective Vitals Vital Signs Date Time Temp Pulse Resp B/P (MAP) Pulse Ox O2 Delivery O2 Flow Rate FiO2 12/29/24 13:00 98.9 96 20 107/73 (84) 99 98.9 12/29/24 10:32 Room Air 12/29/24 10:12 9.0 12/29/24 08:00 21 Intake/Output Intake and Output 12/29/24 07:00 Intake Total 2200 ml Balance 2200 ml Intake Oral 0 ml IV Total 2200 ml # Voids 1 General Appearance: Alert, Oriented X3, Cooperative, No acute distress Lungs: Clear to auscultation Cardiovascular: Regular rate, Normal S1, Normal S2, No murmurs Abdomen: Normal bowel sounds, Soft, No tenderness, No hepatospenomegaly Musculoskeletal: Normal sensory function, Normal motor function Extremities: No edema Neuro: Normal gait, Normal speech, Strength at 5/5 X4 ext, Sensation intact, C ranial nerves 3-12 NL Psych/Mental Status: Mental status NL, Mood NL Medications Current Medications Medications Dose Ordered Sig/Beverly Route Start Time Stop Time Status Last Admin Dose Admin Acetaminophen/ Hydrocodone Bitart 1 tab Q4HP PRN PO 12/28/24 12:00 12/29/24 15:20 1 TAB Ondansetron HCl 4 mg Q4HP PRN IV 12/28/24 12:00 12/29/24 01:54 4 MG Docusate Sodium 100 mg BIDPRN PRN PO 12/28/24 12:00 Acetaminophen 650 mg Q6HP PRN PO 12/28/24 12:00 Ceftriaxone Sodium 50 ml @ 100 mls/hr DAILY@09 IV 12/29/24 09:00 12/29/24 11:35 100 MLS/HR Metronidazole 100 ml @ 100 mls/hr Q8HR IV 12/28/24 22:00 12/29/24 12:41 100 MLS/HR Potassium Chloride/Dextrose/ Sod Cl 1,000 ml @ 100 mls/hr Q10H IV 12/29/24 10:00 12/29/24 14:00 100 MLS/HR Hydromorphone HCl 1 mg Q3HPRN PRN IV 12/29/24 10:15 Laboratory Results Laboratory Tests 12/29/24 07:09 Chemistry Test 12/29/24 07:09 Albumin 3.5 g/dL (3.2-4.8) Calcium Level 7.9 mg/dL (8.7-10.4) L Total Protein 6.3 g/dL (5.7-8.2) LFT Test 12/29/24 07:09 Alanine Aminotransferase (ALT) 44 U/L (7-40) H Alkaline Phosphatase 73 U/L (46-116) Aspartate Amino Transferase (AST) 41 U/L (13-40) H Total Bilirubin 0.4 mg/dL (0.2-1.0) Urinalysis Test 12/28/24 11:27 Urine Color Straw (Yellow) Urine Clarity Turbid (Clear) H Urine pH 5.5 (5.0-9.0) Urine Specific [place] 1.009 (1.001-1.035) Urine Protein Negative (Negative) Urine Ketones Negative (Negative) Urine Blood Negative /uL (Negative) Urine Nitrite Negative (Negative) Urine Bilirubin Negative (Negative) Urine Urobilinogen Normal mg/dL (Negative) Urine Leukocyte Esterase 3+ /uL (Negative) Urine RBC 5 /hpf (0 - 4) Urine Microscopic WBC 3 /HPF (0-5) Urine Squamous Epithelial Cells Few /hpf (<5) Urine Bacteria None seen /hpf (None Seen) Urine Mucus Few (None Seen) Urine Glucose Normal mg/dL (Normal) Microbiology Microbiology Date/Time Source Procedure Growth Status 12/28/24 20:00 Nose MRSA Screen - Final Methicillin Resistant S.aureus Complete Assessment/Plan Assessment/Plan s/p lap cholecystectemy gerd/dyspepsia- add pepcid Plan discussed with: Patient, Spouse Date of Service: Dec 29, 2024 Billing Provider: JACQUELINE ALVARENGA MD Common Visit Codes: [id number] INP/OBS CARE(MOD) JACQUELINE ALVARENGA MD Dec 29, 2024 17:12
[2024-12-29] MEDS: FAMOTIDINE 20 MG TAB PO ONE (17:59)
[2024-12-30] VITALS (8 sets, daily range): BP systolic 107–126; BP diastolic 61–84; PULSE 69–92; RESP 20; TEMP 96.7–98.8; O2SAT 69–99
[2024-12-30 07:33] LABS: Hematocrit 27.2 % (36.0-46.0); Hemoglobin 9.0 g/dL (12.2-16.2); Mean Corpuscular Hemoglobin 27.9 pg (28.0-32.0); Mean Corpuscular Volume 84.1 fL (80.0-100.0); Nucleated Red Blood Cells % 0.0 %
[2024-12-30] MEDS: FAMOTIDINE 20 MG TAB PO SCH (08:07)
[2024-12-30] MEDS: DOCUSATE SOD 100 MG CAP PO PRN (08:07)
--- NOTE | 2024-12-30 09:36 | DVHPN2 ---
Subjective Date Seen: Dec 30, 2024 Post op day Post op day: 1 Patient reports: Feels better, Other (abdominal pain) Nursing reports: No new complaints General: Normal HNT: Normal Cardiovascular: Normal Respiratory: Normal Gastrointestinal: Abdominal Pain Genitourinary: Normal Objective Vitals Vital Sign Date Time Temp Pulse Resp B/P (MAP) Pulse Ox O2 Delivery O2 Flow Rate FiO2 12/30/24 05:00 98.1 69 20 107/64 (78) 69 98.1 12/29/24 20:00 Room Air* 0 21 Total Intake and Output 12/29/24 12/29/24 12/30/24 15:00 23:00 07:00 Intake Total 150 ml 1418 ml 850 ml Output Total 30 ml 875 ml 30 ml Balance 120 ml 543 ml 820 ml Medications Current Medications Medications Dose Ordered Sig/Beverly Route Start Time Stop Time Status Last Admin Dose Admin Acetaminophen/ Hydrocodone Bitart 1 tab Q4HP PRN PO 12/28/24 12:00 12/30/24 08:41 1 TAB Ondansetron HCl 4 mg Q4HP PRN IV 12/28/24 12:00 12/29/24 01:54 4 MG Docusate Sodium 100 mg BIDPRN PRN PO 12/28/24 12:00 12/30/24 08:07 100 MG Acetaminophen 650 mg Q6HP PRN PO 12/28/24 12:00 Ceftriaxone Sodium 50 ml @ 100 mls/hr DAILY@09 IV 12/29/24 09:00 12/30/24 08:07 100 MLS/HR Metronidazole 100 ml @ 100 mls/hr Q8HR IV 12/28/24 22:00 12/30/24 05:17 100 MLS/HR Potassium Chloride/Dextrose/ Sod Cl 1,000 ml @ 100 mls/hr Q10H IV 12/29/24 10:00 12/30/24 06:00 100 MLS/HR Hydromorphone HCl 1 mg Q3HPRN PRN IV 12/29/24 10:15 Famotidine 20 mg DAILY PO 12/30/24 10:00 12/30/24 08:07 20 MG General: Normal, Well developed, Well nourished Head/Eyes: Normal ENT: Normal Neck: Normal, Supple Lungs: Normal, Normal inspection Cardiovascular: Normal, Regular rate and rhythm Abdominal: Normal, Soft Musculoskeletal: Normal, Full Range of Motion Extremities: Normal Skin: Normal, Normal inspection Neurological: Normal, CNII-XII Intact Labs and Microbiology Laboratory Tests 12/30/24 06:55 12/29/24 07:09 Test 12/29/24 07:09 Range/Units Serum Glucose 117 H 74-106 mg/dL Ass/Plan Labs and/or images reviewed: Labs reviewed by me Assessment/Plan - Status post laparoscopic cholecystectomy. Reports abdominal pain. Tolerating diet and passing flatus. No nausea or vomiting reported. Expressed a desire to stay an additional night for pain management. - Abdomen soft , non distended, appropriately tender. White blood cell count is 11.3. Bilirubin is 0.3. - Surgical wounds are clean, dry, and intact. Abdomen is soft and non-distended. Plan: patient to ambulate advance diet as tolerated Plan discussed with Dr. Carranza , patient Visit Coding Surgery Date of Service if different f: Dec 30, 2024 Billing Provider: RITO CARRANZA MD Surgery Visit Codes: [id number] INP/OBS CARE(HIGH) TEE ANDREW NP Dec 30, 2024 09:36
--- NOTE | 2024-12-30 13:48 | MEDREC ---
[facility] Intervention Section I [facility] Intervention: Review courses of therapy (MRSA SCREEN POSITIVE CONSIDER ADDING MUPIROCIN 2% OINTMENT 1 APPLICATION IN EACH NOSTRIL BID FOR 5 DAYS ) ALYSSA BARRY PHARMACIST Dec 30, 2024 13:48
--- NOTE | 2024-12-30 16:52 | DVHPN2 ---
Subjective She is doing better Less pain Tolerating full liquid Changes from previous H/P or p: Changes Eyes: No Pain, No Vision change, No Conjunctivae inflammation, No Eyelid inflammation, No Other, No Redness ENT: No Ear pain, No Ear discharge, No Nose pain, No Nose discharge, No Nose congestion, No Mouth pain, No Mouth swelling, No Throat pain, No Throat swelling, No Other Cardiovascular: No Chest Pain, No Palpitations, No Orthopnea, No Paroxysmal Noc. Dyspnea, No Edema, No Lt Headedness, No Other Respiratory: No Cough, No Dry, No Shortness of breath, No SOB with excertion, No Wheezing, No Hemoptysis, No Pleuritic Pain, No Sputum, No Other Gastrointestinal: Nausea; No Vomiting; Abdominal Pain; No Diarrhea, No Constipation, No Melena, No Hematochezia, No Other Genitourinary: No Dysuria, No Frequency, No Incontinence, No Hematuria, No Retention, No Other Musculoskeletal: No other, No neck pain, No shoulder pain, No arm pain, No back pain, No hand pain, No leg pain, No foot pain Skin: No Rash, No Lesions, No Jaundice, No Bruising, No Other Objective Vitals Vital Signs Date Time Temp Pulse Resp B/P (MAP) Pulse Ox O2 Delivery O2 Flow Rate FiO2 12/30/24 12:59 97.7 80 20 108/61 (77) 99 97.7 12/30/24 08:00 Room Air* 0 21 Intake/Output Intake and Output 12/30/24 07:00 Intake Total 2418 ml Output Total 935 ml Balance 1483 ml Intake Oral 1068 ml IV Total 1350 ml Output Urine Total 800 ml Drainage Total 135 ml # Voids 2 General Appearance: Alert, Oriented X3, Cooperative, No acute distress Lungs: Clear to auscultation Cardiovascular: Regular rate, Normal S1, Normal S2, No murmurs Abdomen: Normal bowel sounds, Soft, No tenderness, No hepatospenomegaly Musculoskeletal: Normal sensory function, Normal motor function Extremities: No edema Neuro: Normal gait, Normal speech, Strength at 5/5 X4 ext, Sensation intact, C ranial nerves 3-12 NL Psych/Mental Status: Mental status NL, Mood NL Medications Current Medications Medications Dose Ordered Sig/Beverly Route Start Time Stop Time Status Last Admin Dose Admin Acetaminophen/ Hydrocodone Bitart 1 tab Q4HP PRN PO 12/28/24 12:00 12/30/24 15:17 1 TAB Ondansetron HCl 4 mg Q4HP PRN IV 12/28/24 12:00 12/29/24 01:54 4 MG Docusate Sodium 100 mg BIDPRN PRN PO 12/28/24 12:00 12/30/24 08:07 100 MG Acetaminophen 650 mg Q6HP PRN PO 12/28/24 12:00 Ceftriaxone Sodium 50 ml @ 100 mls/hr DAILY@09 IV 12/29/24 09:00 12/30/24 08:07 100 MLS/HR Metronidazole 100 ml @ 100 mls/hr Q8HR IV 12/28/24 22:00 12/30/24 15:17 100 MLS/HR Potassium Chloride/Dextrose/ Sod Cl 1,000 ml @ 100 mls/hr Q10H IV 12/29/24 10:00 12/30/24 15:18 100 MLS/HR Hydromorphone HCl 1 mg Q3HPRN PRN IV 12/29/24 10:15 Famotidine 20 mg DAILY PO 12/30/24 10:00 12/30/24 08:07 20 MG Mupirocin 1 applic BID EACHNOSTRI 12/30/24 22:00 01/04/25 21:59 Laboratory Results Laboratory Tests 12/29/24 07:09 12/30/24 06:55 LFT Test 12/30/24 06:55 Total Bilirubin 0.3 mg/dL (0.2-1.0) Urinalysis Test 12/28/24 11:27 Urine Color Straw (Yellow) Urine Clarity Turbid (Clear) H Urine pH 5.5 (5.0-9.0) Urine Specific [place] 1.009 (1.001-1.035) Urine Protein Negative (Negative) Urine Ketones Negative (Negative) Urine Blood Negative /uL (Negative) Urine Nitrite Negative (Negative) Urine Bilirubin Negative (Negative) Urine Urobilinogen Normal mg/dL (Negative) Urine Leukocyte Esterase 3+ /uL (Negative) Urine RBC 5 /hpf (0 - 4) Urine Microscopic WBC 3 /HPF (0-5) Urine Squamous Epithelial Cells Few /hpf (<5) Urine Bacteria None seen /hpf (None Seen) Urine Mucus Few (None Seen) Urine Glucose Normal mg/dL (Normal) Microbiology Microbiology Date/Time Source Procedure Growth Status 12/29/24 07:54 Other Gram Stain - Final Resulted 12/29/24 07:54 Other Anaerobic Culture - Preliminary Resulted 12/29/24 07:54 Other Aerobic Culture - Preliminary Resulted Assessment/Plan Assessment/Plan Acute cholecystitis status post laparoscopic cholecystectomy Cholelithiasis Plan: Advance diet slowly as tolerated Ambulate Out of bed as tolerated Discharge planning for tomorrow Plan discussed with: Patient My Orders Orders - KRIS IRAHETA MD Procedure Category Date Status Time Mupirocin 2% Oint PHA 12/30/24 In Process Mrsa Nares (Bactroban 22:00 Date of Service: Dec 30, 2024 Billing Provider: KRIS IRAHETA MD Common Visit Codes: [id number] INP/OBS CARE(HIGH) KRIS IRAHETA MD Dec 30, 2024 16:52
[2024-12-30] MEDS: MUPIROCIN 2% OINT 15gm or 22gm FOR MRSA NARES EACHNOSTRI SCH (21:15)
[2024-12-31 01:00] VITALS: BP 119/59; PULSE 84; RESP 16; TEMP 96.5; O2SAT 96
[2024-12-31 05:00] VITALS: BP 100/69; PULSE 60; RESP 20; TEMP 98; O2SAT 98
[2024-12-31 07:11] LABS: Hematocrit 26.5 % (36.0-46.0); Hemoglobin 8.9 g/dL (12.2-16.2); Mean Corpuscular Hemoglobin 28.0 pg (28.0-32.0); Mean Corpuscular Volume 83.7 fL (80.0-100.0)
[2024-12-31 07:32] LABS: Alkaline Phosphatase 64 U/L (46-116); Anion Gap 8 (5-15); BUN/Creatinine Ratio 7.5 (10.0-20.0); Bilirubin, Total 0.3 mg/dL (0.2-1.0); Carbon Dioxide 24 mmol/L (20-31); Glucose 86 mg/dL (74-106); Magnesium 1.8 mg/dL (1.6-2.6); Potassium 4.1 mmol/L (3.5-5.1); Sodium 143 mmol/L (136-145)
[2024-12-31 07:35] LABS: Alanine Aminotransferase 59 U/L (7-40); Albumin 3.1 g/dL (3.2-4.8); Blood Urea Nitrogen 6 mg/dL (9-23); Calcium 7.7 mg/dL (8.7-10.4); Chloride 111 mmol/L (98-107); Total Protein 5.5 g/dL (5.7-8.2)
[2024-12-31 07:53] LABS: Total Cells Counted 100.0 (100)
[2024-12-31 08:00] VITALS: PULSE 63; RESP 20; O2SAT 98
[2024-12-31 08:52] VITALS: BP 105/75; PULSE 63; RESP 20; TEMP 98.4; O2SAT 98
[2024-12-31] MEDS ORDERED: AUG875T PO (10:00)
[2024-12-31] MEDS ORDERED: MUPI2OIN2 EX (10:00)
[2024-12-31] MEDS ORDERED: HYDR-4902 PO (10:00)
--- NOTE | 2024-12-31 10:02 | DVHDS2 ---
Discharge Summary Date of Admission Dec 28, 2024 at 11:58 Date of Discharge: Dec 31, 2024 Labs/Diagnostic Data: Laboratory Results Test 12/31/24 06:14 12/30/24 06:55 12/28/24 12:57 12/28/24 11:27 White Blood Count 7.3 10^3/uL (4.4-10.8) Red Blood Count 3.17 10^6/uL (4.0-5.20) Hemoglobin 8.9 g/dL (12.2-16.2) Hematocrit 26.5 % (36.0-46.0) Mean Corpuscular Volume 83.7 fL (80.0-100.0) Mean Corpuscular Hemoglobin 28.0 pg (28.0-32.0) Mean Corpuscular Hemoglobin Concent 33.4 g/dL (32.0-36.0) Red Cell Distribution Width 16.4 % (11.8-14.3) Platelet Count 248 10^3/uL (140-450) Mean Platelet Volume 7.2 fL (6.9-10.8) Neutrophils (%) (Auto) % (37.0-80.0) Lymphocytes (%) (Auto) % (10.0-50.0) Monocytes (%) (Auto) % (0.0-12.0) Basophils (%) (Auto) % (0.0-2.0) Neutrophils # (Auto) 10 ^3/uL (1.6-8.6) Lymphocytes # (Auto) 10 ^3/uL (0.4-5.4) Monocytes # (Auto) 10 ^3/uL (0-1.3) Differential Total Cells Counted 100.0 (100) Neutrophils % (Manual) 36 (37.0-80.0) Band Neutrophils % (Manual) 0 Lymphocytes % (Manual) 54 (10.0-50.0) Monocytes % (Manual) 8 (0-12) Eosinophils % (Manual) 2 (0-7) Basophils % (Manual) 0 (0.0-2.0) Metamyelocytes % (manual) 0 Myelocytes % (Manual) 0 Promyelocytes % (Manual) 0 Blast Cells % (Manual) 0 Reactive Lymphocytes 0 Platelet Estimate Adequate Sodium Level 143 mmol/L (136-145) Potassium Level 4.1 mmol/L (3.5-5.1) Chloride Level 111 mmol/L (98-107) Carbon Dioxide Level 24 mmol/L (20-31) Anion Gap 8 (5-15) Blood Urea Nitrogen 6 mg/dL (9-23) Creatinine 0.80 mg/dL (0.550-1.02) Glomerular Filtration Rate Calc 96 mL/min (>90) BUN/Creatinine Ratio 7.5 (10.0-20.0) Serum Glucose 86 mg/dL (74-106) Calcium Level 7.7 mg/dL (8.7-10.4) Magnesium Level 1.8 mg/dL (1.6-2.6) Total Bilirubin 0.3 mg/dL (0.2-1.0) Aspartate Amino Transferase (AST) 32 U/L (13-40) Alanine Aminotransferase (ALT) 59 U/L (7-40) Alkaline Phosphatase 64 U/L (46-116) Total Protein 5.5 g/dL (5.7-8.2) Albumin 3.1 g/dL (3.2-4.8) Eosinophils (%) (Auto) 0.0 % (0.0-7.0) Eosinophils # (Auto) 0 10 ^3/uL (0-0.8) Basophils # (Auto) 0 10 ^3/uL (0-0.2) Nucleated Red Blood Cells 0.0 % Prothrombin Time 10.8 sec (9.3-11.8) Prothrombin Time INR 1.02 (0.9-1.15) Activated Partial Thromboplast Time 25.1 SEC (24.5-34.5) Beta HCG, Quantitative < 0.0 mIU/mL (1.5-4.2) Urine Color Straw (Yellow) Urine Clarity Turbid (Clear) Urine pH 5.5 (5.0-9.0) Urine Specific [place] 1.009 (1.001-1.035) Urine Protein Negative (Negative) Urine Ketones Negative (Negative) Urine Blood Negative /uL (Negative) Urine Nitrite Negative (Negative) Urine Bilirubin Negative (Negative) Urine Urobilinogen Normal mg/dL (Negative) Urine Leukocyte Esterase 3+ /uL (Negative) Urine RBC 5 /hpf (0 - 4) Urine Microscopic WBC 3 /HPF (0-5) Urine Squamous Epithelial Cells Few /hpf (<5) Urine Bacteria None seen /hpf (None Seen) Urine Mucus Few (None Seen) Urine Glucose Normal mg/dL (Normal) Other Laboratory Tests 12/31/24 06:14 Brief Hx & Hospital Course: Final diagnoses: Acute cholecystitis status post laparoscopic cholecystectomy Cholelithiasis She underwent laparoscopic cholecystectomy for acute cholecystitis after she was admitted for abdominal pain She did well postoperatively Her pain is well controlled now and she is tolerating her diet Advance diet slowly as tolerated Discharge home today [place] p.r.n. for pain Augmentin for 5 days Follow up with General surgery in 1-[address] Carranza Condition at Discharge: Stable Final Diagnosis/Problems List Acute cholecystitis status post laparoscopic cholecystectomy Cholelithiasis Discharge Disposition: Home SNF Discharge Will this Physician continue t: No Discharge Statement: "Patient was advised to return to the ER or call 911 if any headaches, dizziness, shortness of breath, chest pain, abdominal pain, bleeding, fevers, or worsening of medical condition. Patient was counseled about treatment plan, medications, possible side effects, patientverbalized understanding. All questions were answered to the best of my ability. This discharge took greater then 30 minutes in planning, reviewing documentation, counseling the patient, and discussing with other team members." ASSESSMENT ASSESSMENT Assessment Date of Service: Dec 31, 2024 Billing Provider: KRIS IRAHETA MD Common Visit Codes: [id number] DISCH DAY >30min KRIS IRAHETA MD Dec 31, 2024 10:02
[2024-12-31 11:58] VITALS: BP 105/75; PULSE 63; RESP 20; TEMP 36.9; O2SAT 98
--- NOTE | 2024-12-31 12:11 | DVHPN2 ---
Subjective Date Seen: Dec 31, 2024 Post op day Post op day: 2 Patient reports: Feels better, Other (abdominal pain) Nursing reports: No new complaints General: Normal HNT: Normal Cardiovascular: Normal Respiratory: Normal Gastrointestinal: Normal Genitourinary: Normal Objective Vitals Vital Sign Date Time Temp Pulse Resp B/P (MAP) Pulse Ox O2 Delivery O2 Flow Rate FiO2 12/31/24 11:58 36.9 63 20 98 12/31/24 08:52 105/75 (85) 12/31/24 08:00 Room Air* 0 21 Total Intake and Output 12/30/24 12/30/24 12/31/24 15:00 23:00 07:00 Intake Total 650 ml 850 ml 240 ml Output Total 800 ml Balance 650 ml 50 ml 240 ml Medications Current Medications Medications Dose Ordered Sig/Beverly Route Start Time Stop Time Status Last Admin Dose Admin Acetaminophen/ Hydrocodone Bitart 1 tab Q4HP PRN PO 12/28/24 12:00 12/30/24 15:17 1 TAB Ondansetron HCl 4 mg Q4HP PRN IV 12/28/24 12:00 12/29/24 01:54 4 MG Docusate Sodium 100 mg BIDPRN PRN PO 12/28/24 12:00 12/30/24 21:31 100 MG Acetaminophen 650 mg Q6HP PRN PO 12/28/24 12:00 Ceftriaxone Sodium 50 ml @ 100 mls/hr DAILY@09 IV 12/29/24 09:00 12/31/24 10:29 100 MLS/HR Metronidazole 100 ml @ 100 mls/hr Q8HR IV 12/28/24 22:00 12/31/24 06:54 100 MLS/HR Potassium Chloride/Dextrose/ Sod Cl 1,000 ml @ 100 mls/hr Q10H IV 12/29/24 10:00 12/31/24 02:00 100 MLS/HR Hydromorphone HCl 1 mg Q3HPRN PRN IV 12/29/24 10:15 Famotidine 20 mg DAILY PO 12/30/24 10:00 12/30/24 08:07 20 MG Mupirocin 1 applic BID EACHNOSTRI 12/30/24 22:00 01/04/25 21:59 12/30/24 21:15 1 APPLIC General: Normal, Well developed, Well nourished Head/Eyes: Normal ENT: Normal Neck: Normal, Supple Lungs: Normal, Normal inspection Cardiovascular: Normal, Regular rate and rhythm Abdominal: Normal, Soft Musculoskeletal: Normal, Full Range of Motion Extremities: Normal Skin: Normal, Normal inspection Neurological: Normal, CNII-XII Intact Labs and Microbiology Laboratory Tests 12/31/24 06:14 Test 12/31/24 06:14 Range/Units Serum Glucose 86 74-106 mg/dL Ass/Plan Labs and/or images reviewed: Labs reviewed by me Assessment/Plan - Status post laparoscopic cholecystectomy. Reports abdominal pain. Tolerating diet and passing flatus. No nausea or vomiting reported. Expressed a desire to stay an additional night for pain management. - Abdomen soft , non distended, appropriately tender. White blood cell count is 11.3. Bilirubin is 0.3. - Surgical wounds are clean, dry, and intact. Abdomen is soft and non-distended. Plan: patient to ambulate advance diet as tolerated 12/31/2024 - Status post laparoscopic cholecystectomy. Tolerating diet and passing flatus. No nausea or vomiting reported. - Abdomen soft , non distended, appropriately tender. - Surgical wounds are clean, dry, and intact. Abdomen is soft and non-distended. Plan: advance diet as tolerated ok to discharge per surgery point of view follow up in clinic in surgery clinic in 7-10 days Prognosis: Excellent Plan discussed with patient, Dr. Carranza Visit Coding Surgery Date of Service if different f: Dec 31, 2024 Billing Provider: RITO CARRANZA MD Surgery Visit Codes: [id number] INP/OBS CARE(HIGH) TEE ANDREW NP Dec 31, 2024 12:11
[2025-01-01] MEDS ORDERED: HYDR-4902 PO (13:52)
== END 2024-12-31 13:06 | disposition home or self-care (01) | DRG 419 ==
LOC: ER 05:19 → OVERFLOW 11:58 → WEST WING 12-29 02:05
PROVIDERS: ADMIT Internal Medicine Geriatric Medicine; ATTEND Internal Medicine Geriatric Medicine
PROC: 0FT44ZZ Resection of Gallbladder, Percutaneous Endoscopic Approach (ICD-10-PCS; principal; 2024-12-29 09:02)
DX: K80.00 Calculus of gallbladder with acute cholecystitis without obstruction (principal); K21.9 Gastro-esophageal reflux disease without esophagitis; D72.829 Elevated white blood cell count, unspecified; R79.89 Other specified abnormal findings of blood chemistry; Z82.49 Family history of ischemic heart disease and other diseases of the circulatory system; Z82.0 Family history of epilepsy and other diseases of the nervous system; Z87.891 Personal history of nicotine dependence
CPT/HCPCS: 36415; 74176; 76705; 80048; 80053; 81001; 82247; 83735; 84075; 84450; 84460; 84702; 85007; 85025; 85027; 85610; 85730; 86850; 86900; 86901; 87070; 87075; 87081; 87205; 96361; 96365; 96368; 96375; 99291; 99292; G0378; J0131; J1100; J1885; J2003; J2250; J2405; J2704; J3490